=== PATIENT | female | born 1985 | race Two or more races ===

== ENCOUNTER → 2019-09-01 | Emergency (ER) | payer MEDICAID, OTHER ==
[~2019-09-01] VITALS: Ht 160 cm; Wt 77.1 kg
[~2019-09-01] MED LIST: SODIUM CHLORIDE 0.9% 1,000 ML IV ONE; diphenhdrAMINE HCL 50 MG/1 ML VL IV ONE; diphenhdrAMINE HCL 50 MG/1 ML VL ONE; methylPREDNISolone SOD SUCC 125 MG/2 ML VL IV ONE; methylPREDNISolone SOD SUCC 125 MG/2 ML VL ONE
[2019-09-01 23:51] VITALS: BP 109/64
== END | disposition home or self-care (01) ==
LOC: ER 21:48
DX: T78.40XA Allergy, unspecified, initial encounter (principal); J45.909 Unspecified asthma, uncomplicated; X58.XXXA Exposure to other specified factors, initial encounter
CPT/HCPCS: 96374; 96375; 99284; J1200; J2930; J7030

== ENCOUNTER → 2024-02-13 | Outpatient (CLI) | payer MEDICAID ==
[2024-02-13 11:04] LABS: Alanine Aminotransferase 27 U/L (7-40); Albumin 4.9 g/dL (3.2-4.8); Alkaline Phosphatase 79 U/L (46-116); Anion Gap 8 (5-15); Aspartate Aminotransferase 17 U/L (13-40); BUN/Creatinine Ratio 10.5 (10.0-20.0); Beta HCG, Quantitative < 0.0 mIU/mL (1.5-4.2); Blood Urea Nitrogen 11 mg/dL (9-23); Calcium 10.6 mg/dL (8.7-10.4); Carbon Dioxide 21 mmol/L (20-31); Chloride 111 mmol/L (98-107); Glucose 96 mg/dL (74-106); Potassium 4.2 mmol/L (3.5-5.1); Sodium 140 mmol/L (136-145)
[2024-02-13 11:05] LABS: Bilirubin, Total 0.4 mg/dL (0.2-1.0); Total Protein 7.8 g/dL (5.7-8.2)
[2024-02-13 11:07] LABS: Free T4 (Free Thyroxine) 1.08 ng/dL (0.89-1.76); Prolactin 19.26 ng/mL (2.8-29.2); Thyroid Stimulating Hormone 1.77 uIU/mL (0.55-4.78)
[2024-02-13 11:12] LABS: Basophils # (auto) 0 10 ^3/uL (0-0.2); Basophils % (auto) 0.6 % (0.0-2.0); Eosinophils # (auto) 0 10 ^3/uL (0-0.8); Eosinophils % (auto) 0.1 % (0.0-7.0); Hematocrit 40.8 % (36.0-46.0); Hemoglobin 13.7 g/dL (12.2-16.2); Lymphocytes # (auto) 1.4 10 ^3/uL (0.4-5.4); Lymphocytes % (auto) 34.1 % (10.0-50.0); Mean Corpuscular Hemoglobin 31.8 pg (28.0-32.0); Mean Corpuscular Hgb Conc. 33.5 g/dL (32.0-36.0); Mean Corpuscular Volume 94.7 fL (80.0-100.0); Monocytes # (auto) 0.4 10 ^3/uL (0-1.3); Monocytes % (auto) 8.8 % (0.0-12.0); Neutrophils # (auto) 2.4 10 ^3/uL (1.6-8.6); Neutrophils % (auto) 56.4 % (37.0-80.0); Platelet Count (auto) 316 10^3/uL (140-450); Red Cell Distribution Width 14.8 % (11.8-14.3); White Blood Cell 4.2 10^3/uL (4.4-10.8)
== END | disposition home or self-care (01) ==
LOC: LAB 10:26
PROVIDERS: ATTEND Obstetrics & Gynecology
DX: Z00.00 Encounter for general adult medical examination without abnormal findings (principal)
CPT/HCPCS: 36415; 80053; 83036; 84146; 84439; 84443; 84702; 85025

== ENCOUNTER 2024-03-21 09:56 | Day surgery (SDC) | payer MEDICAID ==
--- NOTE | 2024-03-17 10:39 | DVHHP ---
ADMIT DATE: 03/21/2024 DATE OF PLANNED PROCEDURE: 03/21/2024 CHIEF COMPLAINT: Excessive menstrual bleeding. HISTORY OF PRESENT ILLNESS: This is a 39-year-old female 2, para 2 with 3 living children (twins), history of x 2 and bilateral tubal ligation. The patient has had heavy menstrual bleeding for several months. The bleeding is associated with clots and excessive days of menstruation. The patient is not anemic. Her workup has showed normal pelvic ultrasound. No fibroids or masses. Normal ovaries. The patient had a normal Pap smear, HPV negative on 01/18/2024. The patient has exhausted prior medical treatment and desires endometrial ablation for heavy menstrual bleeding. Last menstrual period, 03/12/2024. PAST MEDICAL HISTORY: Negative. PAST SURGICAL HISTORY: x 2 and bilateral tubal ligation. MEDICATIONS: None. ALLERGIES: No known drug allergies. SOCIAL HISTORY: The patient is . Denies any tobacco, alcohol or illicit drug use. FAMILY HISTORY: Negative and noncontributory. REVIEW OF SYSTEMS: A 14-point review of systems is negative as otherwise stated in the history of present illness. OBJECTIVE: VITAL SIGNS: The patient is 5 feet 2 inches tall, weight 159, blood pressure 108/68, temperature 98.2. GENERAL: She is alert, in no acute distress, pleasant female, appears her stated age. HEENT: Normocephalic, atraumatic. Extraocular muscles intact. NECK: Supple, without any palpable thyromegaly. CHEST: Normal S1, S2 heart sounds. No gallops or murmurs. Regular rate and rhythm. PULMONARY: Clear to auscultation bilaterally. ABDOMEN: Soft, nontender, no masses. scar present. EXTREMITIES: Without cyanosis or edema. PELVIC: Shows normal external female genitalia. Cervix is without any lesions, appears nulliparous. No palpable adnexal masses. Uterus is mobile, nontender. No vaginal lesions. ASSESSMENT: * Excessive menstruation. * Previous section x2 and bilateral tubal ligation. PLAN: The patient will be admitted for same day surgery. The consent is for the following: Pelvic exam under anesthesia, operative hysteroscopy, uterine dilatation and curettage, NovaSure endometrial ablation. Informed consent has been obtained. Risks of pain, scar, bleeding, infection, uterine perforation all discussed with the patient. The patient understands that this procedure is not intended to relieve any associated pelvic pain. No guarantees given for complete amenorrhea. The patient verbalized standing and informed consent was obtained. DO MARK Uriostegui/NORMA TID: [id number] RECEIPT: [id number]
[2024-03-17 11:29] LABS: Urine Bacteria None Seen /hpf (None Seen); Urine WBC None Seen /hpf (0 - 5)
[2024-03-17 11:34] LABS: Basophils # (auto) 0 10 ^3/uL (0-0.2); Basophils % (auto) 0.8 % (0.0-2.0); Eosinophils # (auto) 0 10 ^3/uL (0-0.8); Hematocrit 37.6 % (36.0-46.0); Hemoglobin 12.8 g/dL (12.2-16.2); Lymphocytes # (auto) 1.9 10 ^3/uL (0.4-5.4); Lymphocytes % (auto) 36.9 % (10.0-50.0); Mean Corpuscular Volume 91.2 fL (80.0-100.0); Monocytes # (auto) 0.4 10 ^3/uL (0-1.3); Neutrophils # (auto) 2.8 10 ^3/uL (1.6-8.6); Neutrophils % (auto) 55.3 % (37.0-80.0); Platelet Count (auto) 358 10^3/uL (140-450); Red Blood Cells 4.13 10^6/uL (4.0-5.20); White Blood Cell 5.1 10^3/uL (4.4-10.8)
[2024-03-17 11:49] LABS: Urine Amorphous Crystal FEW /hpf (None Seen); Urine Blood Negative /uL (Negative); Urine Budding Yeast FEW /hpf (None Seen); Urine Clarity Turbid (Clear); Urine Color Yellow (Yellow); Urine Mucus FEW (None Seen); Urine Protein, UAD Negative (Negative); Urine Specific Gravity 1.022 (1.001-1.035); Urine Urobilinogen Normal (Negative)
[2024-03-17 12:17] LABS: INR 0.96 (0.9-1.15); Partial Thromboplastin Time 27.4 SEC (24.5-34.5); Prothrombin Time 10.2 sec (9.3-11.8)
[2024-03-17 12:57] LABS: Anion Gap 7 (5-15); Carbon Dioxide 22 mmol/L (20-31); Chloride 114 mmol/L (98-107); Potassium 3.9 mmol/L (3.5-5.1); Sodium 143 mmol/L (136-145)
[2024-03-17 12:58] LABS: Calcium 9.7 mg/dL (8.7-10.4)
[2024-03-17 13:03] LABS: BUN/Creatinine Ratio 12.8 (10.0-20.0); Blood Urea Nitrogen 11 mg/dL (9-23); Glucose 101 mg/dL (74-106)
[~2024-03-21] VITALS: Ht 157.5 cm; Wt 69.9 kg
[~2024-03-21 09:56] MED LIST changes: +ACET250T20 PO; +BREX1TAB2 PO; +BUPR75TA96 PO; -SODIUM CHLORIDE 0.9% 1,000 ML IV ONE; +[UNRECOGNIZED DRUG - CODE]; -diphenhdrAMINE HCL 50 MG/1 ML VL IV ONE; -diphenhdrAMINE HCL 50 MG/1 ML VL ONE; -methylPREDNISolone SOD SUCC 125 MG/2 ML VL IV ONE; -methylPREDNISolone SOD SUCC 125 MG/2 ML VL ONE
[2024-03-21] MEDS ORDERED: MEPERIDINE HCL (50 MG/ML) 1 ML VIAL IV ONE (09:57)
[2024-03-21] MEDS ORDERED: ceFAZolin 2 GM/D5W100ml 100 ML IV ONE (10:20)
[2024-03-21] MEDS ORDERED: fentaNYL CITRATE 100 MCG/2 ML VL ONE (11:51)
[2024-03-21] MEDS ORDERED: MIDAZOLAM HCL 2MG/2ML 2ml VIAL (1mg/ml) ONE (11:51)
[2024-03-21] MEDS ORDERED: MEPERIDINE HCL (50 MG/ML) 1 ML VIAL ONE (11:51)
[2024-03-21] MEDS ORDERED: IBUP-1455 PO (11:51)
[2024-03-21] MEDS ORDERED: ZOFR4T PO (11:54)
[2024-03-21] MEDS ORDERED: DexAMETHasone SOD PHOS 10MG/1ML VIAL INJ ONE (12:14)
[2024-03-21] MEDS ORDERED: PROPOFOL 10 MG/ML 20 ML IV ONE (12:14)
[2024-03-21 12:38] VITALS: RESP 19; TEMP 98.6; O2SAT 98
[2024-03-21] MEDS ORDERED: ACETAMINOPHEN IV 100 ML IV ONE (13:15)
[2024-03-21] MEDS: ACETAMINOPHEN IV 1000 MG/100ML (10MG/ML) IV PRN (13:15)
--- NOTE | 2024-03-21 13:22 | DVHOP ---
DATE OF SURGERY: 03/21/2024 PREOPERATIVE DIAGNOSIS: Excessive menstrual bleeding. FINAL DIAGNOSIS: Excessive menstrual bleeding. PROCEDURES PERFORMED: Pelvic exam under anesthesia, operative hysteroscopy, uterine dilatation and curettage, NovaSure endometrial ablation. SURGEON: Agustin Dominguez DO TECHNICAL ADMINISTRATOR: None. TYPE OF ANESTHESIA: General. ANESTHESIOLOGIST: Saurav Clarke MD DESCRIPTION OF FINDINGS: A normal-sized uterus. Uterine cavity sounds to 9 cm. On hysteroscopy, there was a normal endometrial cavity with bilateral tubal ostia successfully seen. No lesions, polyps or fibroids in the endometrial cavity. No gross evidence of malignancy. Post-ablation, hysteroscopy revealed complete burning and ablation of the endometrial cavity. TECHNICAL PROCEDURE: After informed consent was obtained, the patient was taken to the operating room where she underwent smooth induction with general anesthesia. The patient was placed in dorsal lithotomy position in Gordo stirrups. The vagina and perineum were thoroughly prepped and the patient sterilely draped in the usual fashion. A pelvic exam was then performed under anesthesia with the above-noted findings. A weighted speculum was placed into the patient's vagina. The anterior lip of the cervix was grasped with a single-tooth tenaculum. Uterine cavity sounded to 9 cm. The cervix appeared to already be dilated. The #7 Dao dilator easily passed through the endocervix. Next, the 7 mm hysteroscope was used to perform a diagnostic hysteroscopy. Normal saline was used as the distention medium. Survey of the endometrial cavity revealed the above-noted findings. The hysteroscope was withdrawn under direct visualization. Next, a sharp uterine curettage was performed. Endometrial curettings were collected on Telfa pad and submitted to pathology. Using the NovaSure ablation device, the NovaSure array was inserted into the endometrial cavity. The appropriate measurements of the cavity length and depth were obtained and entered into the power generator. The integrity test passed on first attempt. Next, the ablation cycle was commenced in usual fashion. Approximately 52 seconds of an ablation cycle were performed. At this point, the ablation was completed. The instrument was removed from the patient's uterine cavity atraumatically. Next, I performed another hysteroscopy that revealed complete ablation of the endometrial cavity. The hysteroscope was removed. All instrumentation was removed from the patient's cervix and vagina. There was no bleeding noted. The patient was taken out of lithotomy position, awakened, and taken to recovery room in stable condition. INTRAOPERATIVE COMPLICATIONS: None. ESTIMATED BLOOD LOSS: Less than 15 mL. POSTOPERATIVE CONDITION: Stable. SPECIMENS: Endometrial curettings. Photodocumentation obtained. MEDICATIONS: Two grams of Ancef were given prior to commencement of surgery. DO MARK Uriostegui/NORMA TID: [id number] RECEIPT: [id number]
[2024-03-21] MEDS ORDERED: HYDROmorphone HCL 2 MG/ML VL/or syr ONE (13:33)
[2024-03-21] MEDS ORDERED: HYDROmorphone HCL 2 MG/ML VL/or syr IV PRN ×3 (13:45→14:00)
[2024-03-21] MEDS ORDERED: KETOROLAC TROMETH 30 MG/ML 1ML VIAL IV ONE ×3 (13:45→14:00)
[2024-03-21] MEDS ORDERED: fentaNYL CITRATE 100 MCG/2 ML VL IV PRN (14:00)
[2024-03-21] MEDS ORDERED: MIDAZOLAM HCL 2MG/2ML 2ml VIAL (1mg/ml) IV PRN (14:00)
[2024-03-21] MEDS ORDERED: ONDANSETRON HCL 4 MG/2 ML VIAL IV ONE (14:00)
[2024-03-21] MEDS ORDERED: ePHEDrine SULFATE 50 MG/ML AMP IV PRN (14:00)
[2024-03-21] MEDS ORDERED: MORPHINE SULFATE 4 MG/ML SYR/VIAL IV PRN (14:00)
[2024-03-21] MEDS ORDERED: hydrALAZINE HCL 20 MG/ML VL IV PRN (14:00)
[2024-03-21 14:10] VITALS: BP 123/70; PULSE 83; RESP 16; O2SAT 95
== END 2024-03-21 14:38 | disposition home or self-care (01) ==
LOC: SUR 09:56
PROVIDERS: ATTEND Obstetrics & Gynecology
DX: N92.0 Excessive and frequent menstruation with regular cycle (principal); N93.9 Abnormal uterine and vaginal bleeding, unspecified; N85.8 Other specified noninflammatory disorders of uterus; R10.2 Pelvic and perineal pain; I10 Essential (primary) hypertension; J45.909 Unspecified asthma, uncomplicated; K21.9 Gastro-esophageal reflux disease without esophagitis; Z79.899 Other long term (current) drug therapy; Z86.2 Personal history of diseases of the blood and blood-forming organs and certain disorders involving the immune mechanism; Z90.49 Acquired absence of other specified parts of digestive tract; Z98.51 Tubal ligation status; Z98.891 History of uterine scar from previous surgery
CPT/HCPCS: 36415; 58563; 80048; 81001; 81025; 84702; 85025; 85610; 85730; 86850; 86900; 86901; 88305; J1100; J1171; J2175; J2250; J2371; J2405; J2704; J3010; J0131